=== PATIENT | male | born 1990 | race Native Hawaiian/Other Pacific Islander ===

== ENCOUNTER 2017-05-17 22:22 | Emergency (ER) | payer BC ==
[~2017-05-17] VITALS: Ht 175.3 cm; Wt 106.6 kg
== END 2017-05-18 00:08 | disposition home or self-care (01) ==
LOC: ED 22:22
DX: S80.12XA Contusion of left lower leg, initial encounter (principal); S80.11XA Contusion of right lower leg, initial encounter; N45.1 Epididymitis
CPT/HCPCS: 99283